=== PATIENT | female | born 1965 | race Asian ===

== ENCOUNTER 2018-06-25 08:33 | Day surgery (SDC) | payer OTHER ==
[~2018-06-25] VITALS: Ht 170.2 cm; Wt 74.8 kg
[~2018-06-25 08:33] MED LIST: CEFAZOLIN SOD 1 GM in D5W 50 ML IV ONE
[2018-06-25] MEDS ORDERED: fentaNYL CITRATE/PF 100 MCG/2 ML AMP IVP ONE (12:15)
[2018-06-25] MEDS ORDERED: MIDAZOLAM HCL 5 MG/5 ML VIAL IVP ONE (12:15)
[2018-06-25] MEDS ORDERED: NS IRRIG SOLN 1000 ML IR ONE (12:15)
[2018-06-25] MEDS ORDERED: SEVOFLURANE 15 MIN GAS INH ONE (12:15)
[2018-06-25] MEDS ORDERED: LR 1,000 ML IV.SOLN IV ONE (12:15)
[2018-06-25] MEDS ORDERED: ONDANSETRON HCL 4 MG/2 ML VIAL IVP ONE (12:15)
[2018-06-25] MEDS ORDERED: PROPOFOL 200MG/ 20ML VIAL (DIPRIVAN) IV ONE (12:15)
[2018-06-25] MEDS ORDERED: BUPIVACAINE /EPINEPHRINE/PF 0.25% 30 ML VIAL INJ ONE (12:15)
[2018-06-25] MEDS ORDERED: LR 1,000 ML IV SCH ×2 (12:41→12:44)
[2018-06-25] MEDS ORDERED: MORPHINE 4 MG/ML INJ. SYRINGE IVP PRN ×6 (12:45)
[2018-06-25] MEDS ORDERED: METOCLOPRAMIDE HCL 10 MG/2 ML VIAL IVP PRN ×2 (12:45)
[2018-06-25] MEDS ORDERED: D5/0.45 NS 1,000 ML IV SCH (12:58)
[2018-06-25] MEDS ORDERED: HYDROcodone/ACETAMIN 5-325 MG TAB (NORCO/ VICODIN) PO PRN ×2 (13:00)
[2018-06-25] MEDS ORDERED: HYDROmorphone 1 MG INJ. 1 MG/ML AMPUL IVP PRN (13:00)
[2018-06-25 16:11] VITALS: BP_SYST 103
== END 2018-06-25 14:35 | disposition home or self-care (01) ==
LOC: SDS 08:33 → SMU 08:34 → SDS 14:35
PROVIDERS: ATTEND Colon & Rectal Surgery
DX: R92.0 Mammographic microcalcification found on diagnostic imaging of breast (principal)
CPT/HCPCS: 19081; 19301; 88307; J0690; J2250; J2405; J2704; J3010; J3490; J7060; J7120; 76098-TC